=== PATIENT | female | born 1970 | race Caucasian/White ===

== ENCOUNTER 2024-06-24 12:05 | Emergency (ER) | payer BC, SELFPAY ==
[2024-06-24 12:06] VITALS: BMI 24.4
[2024-06-24 12:08] VITALS: BP 131/90
[2024-06-24 12:44] LABS: % Basophils 0.4 % (0-2); % Eosinophils 1.6 % (0-6); % Immature Granulocytes 0.2 % (0-0.5); % Lymphocytes 29.5 % (20.5-51.1); % Monocytes 6.6 % (1.7-9.3); % Neutrophils 61.7 % (42.2-75.2); Absolute Eosinophils 0.1 10^3/uL (0-0.7); Absolute Lymphocytes 1.6 10^3/uL (1.2-3.4); Absolute Monocytes 0.4 10^3/uL (0.1-0.6); Absolute Neutrophils 3.4 10^3/uL (1.4-6.5); Hematocrit 38.5 % (37.0-47.0); Hemoglobin 13.6 g/dL (12.0-16.0); Mean Corp Hgb Conc. 35.3 g/dL (33.0-37.0); Mean Corpuscular Hgb 29.8 pg (27.0-31.0); Mean Corpuscular Volume 84.4 fL (81.0-99.0); Mean Platelet Volume 9.1 fL (7.4-10.4); Nucleated Red Blood Cells % 0 %; Platelet Count 251 10^3/uL (130-400); Red Blood Cell Count 4.56 10^6/uL (4.20-5.40); Red Cell Dist. Width 12.2 % (11.5-14.5); White Blood Cell Count 5.5 10^3/uL (4.8-10.8)
[2024-06-24 13:08] LABS: ALT (SGPT) 22 U/L (0-35); AST (SGOT) 27 U/L (14-36); Albumin 4.8 g/dl (3.5-5.0); Alkaline Phosphatase 93 U/L (38-126); Blood Urea Nitrogen 12 mg/dl (7-17); Calcium 9.6 mg/dl (8.4-10.2); Carbon Dioxide 26 mmol/L (22-30); Chloride 104 mmol/L (98-107); Glucose 95 mg/dl (70-99); Lipase 92 U/L (23-300); Potassium 3.8 mmol/L (3.5-5.1); Sodium 140 mmol/L (135-145); Total Bilirubin 1.4 mg/dl (0.2-1.3); Total Protein 7.7 g/dl (6.3-8.2); eGFR > 60.00
[2024-06-24 13:11] LABS: Urine Albumin Negative (Neg - Trace); Urine Bilirubin Negative (Negative); Urine Character Clear (Clear); Urine Color Yellow; Urine Glucose Negative (Negative); Urine Ketone Negative (Negative); Urine Leukocyte Negative (Negative); Urine Nitrite Negative (Negative); Urine Occult Blood Negative (Negative); Urine Urobilinogen Negative (Neg - 1+)
[2024-06-24 13:17] LABS: HCG, Serum Qualitative Screen Positive
--- NOTE | 2024-06-24 13:59 | ED.GENMED ---
History of Present Illness
General
Chief Complaint: Abdominal Pain
Time Seen by Provider: 06/24/24 13:39
History of Present Illness
History of Present Illness:
Patient is a 53-year-old woman presenting to the emergency department with abdominal pain. Patient has a that she has a known gallbladder polyp that has been observed by GI and has been stable. She states that 2 days ago she had eggs and mae for
breakfast and developed right upper quadrant pain. 2 days ago the pain was received relieved with Tylenol Motrin. However yesterday the pain came back after she ate a bland meal and the pain has not been controlled by Tylenol Motrin. She does
states that the pain is relieved with heat as well as light pressure. No nausea or vomiting. No diarrhea. No urinary symptoms. No history of pain after eating prior to this episode. No back pain. No alcohol use.
Past History
Past History
ED Past Medical History: Hypercholesterolemia (Diet controlled), Other (Migraines), Other (nephrolithiasis) and Other (cystitis)
ED Past Surgical History: Appendectomy, and Orthopedic
Social History
Tobacco: Non-smoker
Phy Exam
Physical Exam
Physical Exam:
GENERAL: in no acute distress
HEENT: normocephalic, extraocular movements intact, moist oral mucosa
NECK: normal inspection
RESPIRATORY: no respiratory distress, clear to auscultation bilaterally
CARDIOVASCULAR: regular rate and rhythm
ABDOMEN/: soft, non-distended, right upper quadrant tenderness to palpation, mild epigastric tenderness, no rebound or guarding
EXTREMITIES: non-tender, no edema/swelling
NEUROLOGIC: awake and alert, moves all extremities
SKIN: warm
Course
Orders/Labs/Results
Orders:
Orders
06/24/24 12:11
Electrocardiogram (*1) Urgent
Reason for Study: Abdominal Pain
EKG- Treatment ONCE
Test Result ONCE
06/24/24 12:35
Beta HCG Quantitative Urgent
Is this a screen?: No
Complete Blood Count/With Diff Urgent
Comprehensive Metabolic Panel Urgent
HCG, Serum Qualitative Screen Urgent
Lipase Urgent
06/24/24 12:38
Urinalysis Reflex To Culture Urgent
Date Specimen was Collected: 06/24/24
Time Specimen was Collected: 12:11
06/24/24 13:40
Add On- LAB Urgent
Tests Added?: hcg quant
06/24/24 13:58
US Abdomen Complete/Upper Urgent
Comment:
Reason For Exam: RUQ pain
US Pelvis W Transvag Combined Urgent
Comment:
Reason For Exam: +hcg
Abnormal Lab Results
06/24/24
12:35
Total Bilirubin 1.4 H mg/dl
(0.2-1.3)
06/24/24 12:35
06/24/24 12:35
Vital Signs
Initial and Last Documented VS:
Initial Vital Signs
Temp Pulse Resp BP Pulse Ox
98.0 F 93 16 131/90 98
06/24/24 12:08 06/24/24 12:08 06/24/24 12:08 06/24/24 12:08 06/24/24 12:08
Last Documented Vital Signs
Temp Pulse Resp BP Pulse Ox
98.0 F 68 16 112/74 98
06/24/24 12:08 06/24/24 16:00 06/24/24 16:00 06/24/24 16:00 06/24/24 16:00
MDM/Problems Addressed
Differential Diagnosis Includes:
Patient is a 53-year-old woman with history of a gallbladder polyp presenting to the emergency department right upper quadrant pain. Vitals unremarkable exam does show right upper quadrant tenderness to palpation positive Gay sign. Concern for
cholecystitis versus pancreatitis. Blood work obtained prior to my evaluation is unremarkable. Will obtain right upper quadrant ultrasound. Patient does have a positive hCG qualitative. Will add on quantitative value. Patient is perimenopausal.
She does have history of tubal ligation. She also had an endometrial ablation and 2 D&Cs for abnormal vaginal bleeding. No history of ovarian or breast cancer. She does have family history of breast cancer.
*Critical Care Note
Total Time (30-74mins, 75-104mins- exclusive of procedures): Not Applicable
Update Note
Update Note:
On reevaluation patient states the pain is much improved. She has been able to tolerate p.o. Ultrasound obtained. Per my interpretation the gallbladder there is no gallbladder wall thickening. Per the official read there are 3 gallbladder polyps
the largest one 4 mm. I did discuss with patient that she is having symptoms of biliary colic and to follow-up with general surgery for elective removal.
hCG quantitive is 6. Ultrasound shows no intrauterine but obviously ectopic cannot be excluded. I did discuss with patient at length. Given that her quant was so low patient will follow-up with [facility]. I did offer patient to
update our OB team however she would prefer to follow-up with her telecom analyst at [facility]. I did emphasize patient the importance of repeating as repeat beta-hCG. She will call the office tomorrow. I did provide her with a prescription to
check for repeat hCG levels. Strict return precautions given. Will discharge patient at this time
ED Attending Note
-
Portions of this chart may have been created with voice recognition software.� Occasional wrong word or��sound alike� substitutions may have occurred due to the inherent limitations of voice recognition software.
Discharge Plan
Departure
Patient Disposition: Home (Routine Discharge)
Date of Disposition: 06/24/24
Time of Disposition: 18:06
Patient with high blood pressure during this ER visit?: No
Discharge Problem:
Gallbladder polyp
Prescriptions:
No Action
multivitamin 1 EACH tablet
1 ea PO DAILY
montelukast 10 MG tablet
10 mg PO QPM
topiramate [Topamax] 50 MG tablet
50 mg PO BID
Black Cohosh 1 TAB Tab
1 tab PO DAILY
Referrals:
Rg Ball MD [Family Provider] -
Mayito Armijo MD [Active] -
Activity Restrictions/Additional Instructions:
You were seen in the Emergency Department today for abdominal pain. While you were here we performed blood work, which was reassuring. Please follow-up with the surgeons about your gallbladder for possible removal. Please follow-up with your OB
team for repeat hCG. I did give you a prescription for it.
We would like for you to follow up with your primary care physician for further evaluation. If you experience fever, worsening of your symptoms, or develop any other new or concerning symptoms, please return to the Emergency Department immediately.
Please see the attached sheet for additional information.
Interventions
Interventions:
*Risk Screen - Suicide Last Done: 06/24/24 12:08
*General Assessment Last Done: 06/24/24 18:13
*Neglect/Abuse Screening Last Done: 06/24/24 12:08
ED- Fall Risk Assessment Last Done: 06/24/24 18:13
*Nursing Disposition Last Done: 06/24/24 18:13
YQ-Oagonc-Xmmuievgvj Assessment Last Done: 06/24/24 18:14
Discharge Date and Time
Discharge Date/Time: 06/24/24 18:14
Print Language: KINYARWANDA
[2024-06-24 14:00] VITALS: BP 118/74
[2024-06-24 16:00] VITALS: BP 112/74
[2024-06-24 17:30] LABS: Beta HCG Quantitative 6.77 mIU/ml
== END 2024-06-24 18:14 | disposition home or self-care (01) ==
LOC: EMR 12:05
PROVIDERS: Emergency Medicine; EMERGENCY PHYSICIAN Student in an Organized Health Care Education/Training Program; FAMILY PHYSICIAN Family Medicine
DX: K82.4 Cholesterolosis of gallbladder (principal); R79.89 Other specified abnormal findings of blood chemistry; E78.00 Pure hypercholesterolemia, unspecified; Z87.442 Personal history of urinary calculi; Z90.49 Acquired absence of other specified parts of digestive tract
CPT/HCPCS: 99284; 76700; 76830; 76856; 80053; 81003; 83690; 84702; 84703; 85025; 93005

== ENCOUNTER → 2024-07-08 12:51 | Outpatient (REF) | payer BC, SELFPAY ==
[2024-07-08 16:23] LABS: Beta HCG Quantitative 7.06 mIU/ml; FSH 93.6 mIU/ml
== END ==
LOC: HWLAB 12:51
PROVIDERS: ATTENDING PHYSICIAN Nurse Practitioner Obstetrics & Gynecology; FAMILY PHYSICIAN Family Medicine
DX: E89.41 Symptomatic postprocedural ovarian failure (principal)
CPT/HCPCS: 36415; 83001; 84702

== ENCOUNTER → 2024-08-05 07:53 | Outpatient (REF) | payer BC, SELFPAY | LOC: HWRAD 07:53 | PROVIDERS: ATTENDING PHYSICIAN Nurse Practitioner Obstetrics & Gynecology; FAMILY PHYSICIAN Family Medicine | DX: R10.9 Unspecified abdominal pain (principal) | CPT/HCPCS: 76830; 76856 ==

== ENCOUNTER → 2024-09-23 08:20 | Outpatient (REF) | payer BC, SELFPAY | LOC: HWRAD 08:20 | PROVIDERS: ATTENDING PHYSICIAN Nurse Practitioner Obstetrics & Gynecology; FAMILY PHYSICIAN Family Medicine | DX: N83.291 Other ovarian cyst, right side (principal) | CPT/HCPCS: 76830; 76856 ==

== ENCOUNTER 2024-11-22 06:36 | Day surgery (SDC) | payer BC, SELFPAY ==
[2024-11-09 08:06] VITALS: BMI 23.1
[2024-11-09 08:45] LABS: Hematocrit 39.7 % (37.0-47.0); Mean Corp Hgb Conc. 35.3 g/dL (33.0-37.0); Mean Corpuscular Hgb 30.1 pg (27.0-31.0); Mean Corpuscular Volume 85.4 fL (81.0-99.0); Mean Platelet Volume 9.2 fL (7.4-10.4); Platelet Count 277 10^3/uL (130-400); Red Blood Cell Count 4.65 10^6/uL (4.20-5.40); Red Cell Dist. Width 12.5 % (11.5-14.5); White Blood Cell Count 4.4 10^3/uL (4.8-10.8)
[2024-11-09 09:10] LABS: ALT (SGPT) 26 U/L (0-35); AST (SGOT) 26 U/L (14-36); Albumin 4.7 g/dl (3.5-5.0); Alkaline Phosphatase 93 U/L (38-126); Blood Urea Nitrogen 15 mg/dl (7-17); Calcium 9.7 mg/dl (8.4-10.2); Carbon Dioxide 23 mmol/L (22-30); Chloride 110 mmol/L (98-107); Estimated Creatinine Clearance 51 ml/min; Glucose 90 mg/dl (70-99); Potassium 4.3 mmol/L (3.5-5.1); Sodium 143 mmol/L (135-145); Total Bilirubin 1.1 mg/dl (0.2-1.3); Total Protein 7.9 g/dl (6.3-8.2); eGFR > 60.00
[2024-11-22] VITALS (10 sets, daily range): BP systolic 128–169; BP diastolic 73–88; BMI 23.1
--- NOTE | 2024-11-22 08:36 | HP.FOC2 ---
Focused History & Physical
Chief Complaint
HPI:
Chief Complaint: Biliary colic, gallbladder polyps
HPI / Indication for Planned Procedure: Patient is a 54-year-old female recently seen in outpatient surgical evaluation after emergency department presentation for abdominal pain this past May identified 3 gallbladder polyps, no gallstones no
wall thickening. She has had a 2-year history of intermittent right upper quadrant pain radiating to the substernal region. There is secondary to anorexia and bloating but no vomiting. She has been seen emergency department evaluation 3 times
over the past few years for this and in between she experiences mild episodes a few times a year. Typically occur at various times throughout the day but not overnight. Extensive GI evaluation has only been notable for gallbladder polyps.
Secondary to suspected bouts of biliary colic and possible gallbladder polyps versus cholesterolosis she is presenting today for cholecystectomy.
Relevant Past Medical History: Other (Migraines, nephrolithiasis, hypercholesterolemia)
Relevant Social History: Negative
Relevant Family History: Negative
Relevant Past Surgical History: Positive for (, appendectomy, lumbar discectomy)
Review of Systems
Review of Pertinent Systems: All Systems Negative
Medication
See Medication form for detailed medications: Yes
Medication List (including Herbals & OTC):
montelukast 10 mg tablet 10 mg PO HS 02/23/20
topiramate 50 mg tablet (Topamax) 50 mg PO HS 02/23/20
atorvastatin 20 mg tablet 20 mg PO HS 11/15/24
estradiol 10 mg implant pellet 10 mg SC MOTH 11/15/24
topiramate 25 mg tablet (Topamax) 25 mg PO DAILY 11/15/24
Medications Reviewed: Yes
Allergies and Reactions
Patient has Allergies: No
Noted Allergies and Reactions:
Allergy/AdvReac Type Severity Reaction Status Date / Time
No Known Allergies Allergy Verified 11/15/24 11:11
Pertinent Physical Exam
All Other Systems: Negative
Head/Neck: Normal
Lungs: Normal
Heart: Normal
Abdomen: Normal
Extremities: Normal
Neurological: Normal
Diagnosis / Assessment
54-year-old female with recurrent biliary colic and suspected gallbladder polyps presenting for cholecystectomy
Plan / Procedure
Laparoscopic cholecystectomy with intraoperative cholangiogram
Anesthesia/Sedation to be done by Anesthesia Provider: Yes
--- NOTE | 2024-11-22 08:40 | W.SUR.PREOP ---
Pre-Operative Surgical Note
-
I have examined this patient prior to the performance of the scheduled procedure.
The patient's condition is unchanged from the time of the current History and
Physical and the patient is able to undergo the scheduled procedure.
[2024-11-22] MEDS: NORMOSOL-R/PLASMALYTE-A 1000 IV (09:35)
[2024-11-22] MEDS: TYLENOL 1000 MG PO (09:40)
--- NOTE | 2024-11-22 12:27 | W.IMMPOSTOP ---
Addendum entered and electronically signed by Mayito Armijo MD 11/22/24 12:53:
[id number]
Original Note:
Surgical Immed Post Op Note
-
Primary Surgeon: Mayito Armijo MD
Assisting Surgeon: Keri Briggs PA-C
Pre-op Diagnosis: Biliary colic; gallbladder polyp on ultrasound
Post-op Diagnosis: Biliary colic; gallbladder polyps on ultrasound
Procedure Performed: Laparoscopic cholecystectomy with intraoperative cholangiogram
Anesthesia Type: GETA +0.25% Marcaine
Specimen / Cultures: Gallbladder
Estimated Blood Loss: 8 mL
Complications: none immediate
Operative Findings: Physiologically distended gallbladder. Filmy omental adhesions from body down towards the infundibulum. Main cystic artery controlled with clips. Posterior cystic artery branch controlled with clips. Intraoperative
cholangiogram normal. Cystic duct controlled with 3 clips proximally 1 clip distally. Gallbladder removed off liver bed intact and extracted at epigastric port site.
The assistance of Keri Briggs PA-C was required due to the complexity of the procedure. During the surgery Keri Briggs PA-C assisted with trocar placement, gallbladder retraction for exposure and managing the laparoscope, and closure of the
surgical incision sites. I was present for the entirety of the operative procedure.
[2024-11-22] MEDS: SUBLIMAZE 50 MCG IV (13:06)
[2024-11-22] MEDS: SUBLIMAZE 25 MCG IV ×2 (13:19→13:44)
== END 2024-11-22 14:41 | disposition home or self-care (01) ==
LOC: SDS 06:36
PROVIDERS: ATTENDING PHYSICIAN Surgery; FAMILY PHYSICIAN Family Medicine
DX: K81.1 Chronic cholecystitis (principal); K83.8 Other specified diseases of biliary tract
CPT/HCPCS: 47563; 88304; 74300; 76000; 80053; 85027; 93005; A4300